=== PATIENT | female | born 2000 | race Caucasian/White ===

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

== ENCOUNTER 2020-03-02 15:24 | Emergency (ER) | payer BC, SELFPAY ==
[2020-03-02] VITALS (19 sets, daily range): BP systolic 105–126; BP diastolic 59–73; PULSE 43–75; RESP 12–26; TEMP 36.4; O2SAT 98–100; BMI 25.8
--- NOTE | 2020-03-02 15:53 | DI.RAD.S_ITS ---
PROCEDURE: XR CHEST 1V INDICATIONS: chest pain TECHNIQUE: One view of the chest was acquired. COMPARISON: None. FINDINGS: Surgical changes and devices: None. Lungs and pleura: Mild left basilar atelectasis. No pleural effusions or pneumothorax. Mediastinum: Mediastinal contours appear normal. Heart size is normal. Bones and chest wall: No suspicious bony lesions. Overlying soft tissues appear unremarkable. IMPRESSION: No acute cardiopulmonary disease. Mild left basilar atelectasis. Dictated by: Breanne Wasserman M.D. on 03/02/2020 at 16:09 Approved by: Breanne Wasserman M.D. on 03/02/2020 at 16:15
[2020-03-02 16:21] LABS: Add Manual Diff / Slide Review NO; Basophils Absolute Auto 100 /uL (0-100); Basophils Percent Auto 0.6 % (0-2); Eosinophils Absolute Auto 200 /uL (0-450); Eosinophils Percent Auto 1.8 % (2-4); Hemoglobin 12.6 g/dL (12.0-16.0); Lymphocytes Absolute Auto 2900 /uL (1100-4500); Lymphocytes Percent Auto 34.1 % (25-40); Mean Corpuscular HGB Conc 34.9 % (30-36); Mean Corpuscular Hemoglobin 30.7 PG (26-34); Monocytes Absolute Auto 700 /uL (0-900); Monocytes Percent Auto 8.5 % (3-14); Neutrophils Absolute Auto 4600 /uL (1500-7000); Platelet Count 355 X10^3/uL (150-400); White Blood Cell Count 8.4 X10^3/uL (4.5-11.0)
[2020-03-02 16:28] LABS: INR 1.1 (0.9-1.3); Prothrombin Time 12.5 SECONDS (10.1-12.7)
[2020-03-02 16:31] LABS: PTT Partial Thromboplastin Tim 33 SECONDS (26.4-36.2)
[2020-03-02 16:32] LABS: Albumin 4.6 g/dL (3.5-5.0); Albumin Globulin Ratio 1.6 (1.0-2.8); Alkaline Phosphatase 68 U/L (38-126); Aspartate Aminotransferase 30 IU/L (14-36); BUN Creatinine Ratio 13.8 (6-22); Bilirubin Total 0.4 mg/dL (0.2-1.3); Blood Urea Nitrogen 9 mg/dL (7-17); Carbon Dioxide 25 mmol/L (22-32); Chloride 107 mmol/L (98-107); Creatine Kinase 156 U/L (30-135); Estimated Glomerular Filt Rate > 60.0 mL/min (>60); Globulin 2.9 g/dL (1.7-4.1); Glucose 97 mg/dL (70-100); HEMOLYSIS < 15 (0-50); Lipase 51 U/L (23-300); Potassium 4.6 mmol/L (3.4-5.1); Sodium 140 mmol/L (137-145); Total Protein 7.5 g/dL (6.3-8.2)
[2020-03-02 16:44] LABS: Troponin I < 0.012 ng/mL (0.01-0.034)
[2020-03-02 16:48] LABS: CKMB % Relative Index 0.4 % (1.5-5.0); Creatine Kinase MB 0.56 ng/mL (<2.37)
[2020-03-02 17:11] LABS: D Dimer 728 ng/mL (<230)
--- NOTE | 2020-03-02 18:17 | DI.CT.S_ITS ---
PROCEDURE: CT ANGIO CHEST PE PROTOCOL INDICATIONS: pain on breathing, +d dimer TECHNIQUE: After the administration of intravenous contrast, 2 mm thick sections acquired from the pulmonary apices to the posterior costophrenic angles. 3-dimensional maximum intensity projection (MIP) coronal and sagittal reformats were then acquired through the thorax. For radiation dose reduction, the following was used: automated exposure control, adjustment of mA and/or kV according to patient size. COMPARISON: None. FINDINGS: Image quality: Study is degraded secondary to suboptimal timing of contrast bolus. Pulmonary arteries: Pulmonary arteries are normal in size, and demonstrate no intraluminal filling defects to suggest central pulmonary embolism. Lungs and pleura: There is a small right and trace left pleural effusion. Associated compressive atelectasis. Lungs are otherwise clear. No pneumothorax. Central and peripheral airways are patent. Mediastinum: Heart size is normal, without pericardial effusion. No mediastinal or hilar adenopathy. Thoracic aorta is normal in caliber and enhancement. Esophagus is normal in caliber, without hiatal hernia. Bones and chest wall: No suspicious bony lesions. Ribs and thoracic spine appear intact throughout. Thyroid gland is unremarkable. No axillary or supraclavicular adenopathy. Abdomen: Incompletely imaged gallbladder with suggestion of either presence of pericholecystic fluid versus distended gallbladder and a large gallstone. Remainder of the visualized upper abdominal solid organs appear normal in the early arterial phase of enhancement. IMPRESSION: 1. Within the limits of this study, no acute pulmonary emboli identified. 2. Trace left and small right bilateral pleural effusions. 3. Incompletely imaged gallbladder with suggestion of either pericholecystic fluid surrounding the gallbladder versus a distended gallbladder containing a large stone. Consider further evaluation with sonogram if there is right upper quadrant pain. Dictated by: Alfie Waller M.D. on 03/02/2020 at 20:21 Approved by: Alfie Waller M.D. on 03/02/2020 at 20:28
[2020-03-02] MEDS: KETOROLAC 60 MG/2 ML VIAL 30 MG IV (19:42)
--- NOTE | 2020-03-02 20:17 | ED_ITS ---
HPI - Abdominal Pain <PARIS Perez - Last Filed: 03/02/20 23:03> General Chief Complaint: Abdominal Pain Stated Complaint: ABD PAIN HAS ISSUES WHEN TAKING A BREATH Time Seen by Provider: 03/02/20 16:49 Source: patient and family Mode of arrival: Ambulatory Limitations: no limitations History of Present Illness HPI narrative: The patient is a 19-year-old female nonsmoker who denies pertinent medical history presents with a chief complaint of right-sided abdominal and chest pain, especially when taking a deep breath. She states it is positional, worse with pressure and worse with taking a deep breath. She states that the pain bleeds shortness of breath. She denies any fevers nausea vomiting or diarrhea. She denies any worsening after she eats. She denies any or moves or recent episodes of immobility. She denies any abdominal surgeries. She does have history of left ankle fracture a few months ago. Mother notes that she recently climbed [employer] on Sunday and Sunday. She states that the pain radiates from right upper quadrant of the front of her chest. Worse with some movements. Related Data Home Medications Medication Instructions Recorded Confirmed No Known Home Medications 08/07/18 09/24/18 Allergies Allergy/AdvReac Type Severity Reaction Status Date / Time No Known Drug Allergies Allergy Verified 03/02/20 15:35 Review of Systems <PARIS Perez - Last Filed: 03/02/20 23:03> Review of Systems Narrative: GENERAL: Denies chills, fatigue, malaise, fever, sweats. HEENT: Denies sinus pain, ear pain, sore throat, difficulty swallowing, dizziness. RESPIRATORY: See HPI CARDIOVASCULAR: See HPI GASTROINTESTINAL: See HPI : Denies dysuria, frequency, incontinence, hematuria, urinary retention. MUSCULOSKELETAL: denies weakness, joint pain, or bony pain SKIN: Denies rash, skin lesions, or other NEUROLOGIC: Denies weakness, headache, numbness, change in speech, confusion, seizures, incoordination. PSYCHIATRIC: No concerning psychosocial issues. 12 point review of systems is negative except for those stated above Patient History <PARIS Perez - Last Filed: 03/02/20 23:03> Social History Smoking Status: Never smoker Smoking Status: Never smoker Substance Use Type: does not use Exam <SURESH Perez - Last Filed: 03/02/20 23:03> Narrative Exam Narrative: GENERAL: This is a well-nourished, well-developed patient, in no acute distress HEAD: Atraumatic. Normocephalic. No temporal or scalp tenderness. EYES: Pupils equal round and reactive. Extraocular motions intact. No scleral icterus. No injection or drainage. ENT: Nose without bleeding, purulent drainage or septal hematoma. Airway patent. NECK: Trachea midline. No JVD or lymphadenopathy. Supple, nontender, no meningeal signs. CARDIOVASCULAR: Regular rate and rhythm RESPIRATORY: Clear to auscultation. Breath sounds equal bilaterally. No wheezes, rales, or rhonchi. No cough. No increased respiratory effort. No accessory muscle use. GASTROINTESTINAL: Abdomen soft, active bowel sounds all 4 quadrants, nondistended. No hepato-splenomegaly, or palpable masses. No guarding. pain to palpation right upper quadrant, which is positional. EXTREMITIES: No clubbing, cyanosis, or edema. No joint tenderness, effusion, or edema noted. BACK: Nontender without deformity or crepitance. No flank tenderness. NEURO: AOx3. SKIN: No rash or erythema on visible skin Initial Vital Signs Initial Vital Signs: Vital Signs Temperature 97.6 F 03/02/20 15:29 Pulse Rate 62 03/02/20 15:29 Respiratory Rate 12 03/02/20 15:29 Blood Pressure 126/73 03/02/20 15:29 Pulse Oximetry 100 03/02/20 15:29 <Julio Martínez DO - Last Filed: 03/02/20 23:16> Initial Vital Signs Initial Vital Signs: Vital Signs Temperature 97.6 F 03/02/20 15:29 Pulse Rate 62 03/02/20 15:29 Respiratory Rate 12 03/02/20 15:29 Blood Pressure 126/73 03/02/20 15:29 Pulse Oximetry 100 03/02/20 15:29 Scores <SURESH Perez - Last Filed: 03/02/20 23:03> GCS Giovanna coma scale eye opening: Spontaneous [place] coma scale verbal response: Orientated [place] coma scale motor response: Obey commands Giovanna coma scale total score: 15 Course <SURESH Perez - Last Filed: 03/02/20 23:03> Orders Ordered: ED Orders 03/02/20 15:53 XR chest 1V Stat EKG-12 Lead Stat 03/02/20 15:57 Complete Blood Count AUTO DIFF Stat Comprehensive Metabolic Panel Stat D Dimer Stat Lipase Stat Partial Thromboplastin Time Stat Prothrombin Time INR Stat Troponin & CK Cardiac Panel Stat 03/02/20 18:17 CT angio chest PE protocol Stat 03/02/20 20:34 US abdomen limited Stat Discontinued Medications Cyclobenzaprine HCl (Flexeril) 10 mg PO NOW ONE Stop: 03/02/20 20:31 Last Admin: 03/02/20 20:51 Dose: Not Given Documented by: ANI Ketorolac Tromethamine (Toradol) 30 mg IV NOW ONE Stop: 03/02/20 18:19 Last Admin: 03/02/20 19:42 Dose: 30 mg Documented by: ANI Vital Signs Vital signs: Vital Signs - 8 hr 03/02/20 15:29 03/02/20 15:57 03/02/20 16:00 Temperature 97.6 F Pulse Rate 62 75 73 Respiratory Rate 12 20 Blood Pressure 126/73 119/67 119/70 Pulse Oximetry 100 100 100 03/02/20 16:30 03/02/20 17:00 03/02/20 17:30 Temperature Pulse Rate 45 L 52 L Respiratory Rate 19 25 H Blood Pressure 125/70 118/70 Pulse Oximetry 100 100 03/02/20 17:31 03/02/20 18:19 03/02/20 18:20 Temperature Pulse Rate 73 48 L 48 L Respiratory Rate 26 H 19 Blood Pressure 126/72 115/64 Pulse Oximetry 99 99 100 03/02/20 18:30 03/02/20 19:06 03/02/20 19:07 Temperature Pulse Rate 47 L 48 L 54 L Respiratory Rate 17 17 Blood Pressure 116/69 Pulse Oximetry 100 98 99 03/02/20 19:30 03/02/20 20:00 03/02/20 20:30 Temperature Pulse Rate 45 L 47 L 52 L Respiratory Rate 17 13 23 Blood Pressure 115/64 117/59 L 123/68 Pulse Oximetry 99 98 99 03/02/20 21:00 03/02/20 21:30 03/02/20 22:00 Temperature Pulse Rate 47 L 61 43 L Respiratory Rate 24 16 16 Blood Pressure 119/67 123/66 105/63 Pulse Oximetry 99 100 98 03/02/20 22:30 Temperature Pulse Rate 47 L Respiratory Rate 19 Blood Pressure 111/60 Pulse Oximetry 99 <Julio Martínez DO - Last Filed: 03/02/20 23:16> Orders Ordered: ED Orders 03/02/20 15:53 XR chest 1V Stat EKG-12 Lead Stat 03/02/20 15:57 Complete Blood Count AUTO DIFF Stat Comprehensive Metabolic Panel Stat D Dimer Stat Lipase Stat Partial Thromboplastin Time Stat Prothrombin Time INR Stat Troponin & CK Cardiac Panel Stat 03/02/20 18:17 CT angio chest PE protocol Stat 03/02/20 20:34 US abdomen limited Stat Discontinued Medications Cyclobenzaprine HCl (Flexeril) 10 mg PO NOW ONE Stop: 03/02/20 20:31 Last Admin: 03/02/20 20:51 Dose: Not Given Documented by: ANI Ketorolac Tromethamine (Toradol) 30 mg IV NOW ONE Stop: 03/02/20 18:19 Last Admin: 03/02/20 19:42 Dose: 30 mg Documented by: ANI Vital Signs Vital signs: Vital Signs - 8 hr 03/02/20 15:29 03/02/20 15:57 03/02/20 16:00 Temperature 97.6 F Pulse Rate 62 75 73 Respiratory Rate 12 20 Blood Pressure 126/73 119/67 119/70 Pulse Oximetry 100 100 100 03/02/20 16:30 03/02/20 17:00 03/02/20 17:30 Temperature Pulse Rate 45 L 52 L Respiratory Rate 19 25 H Blood Pressure 125/70 118/70 Pulse Oximetry 100 100 03/02/20 17:31 03/02/20 18:19 03/02/20 18:20 Temperature Pulse Rate 73 48 L 48 L Respiratory Rate 26 H 19 Blood Pressure 126/72 115/64 Pulse Oximetry 99 99 100 03/02/20 18:30 03/02/20 19:06 03/02/20 19:07 Temperature Pulse Rate 47 L 48 L 54 L Respiratory Rate 17 17 Blood Pressure 116/69 Pulse Oximetry 100 98 99 03/02/20 19:30 03/02/20 20:00 03/02/20 20:30 Temperature Pulse Rate 45 L 47 L 52 L Respiratory Rate 17 13 23 Blood Pressure 115/64 117/59 L 123/68 Pulse Oximetry 99 98 99 03/02/20 21:00 03/02/20 21:30 03/02/20 22:00 Temperature Pulse Rate 47 L 61 43 L Respiratory Rate 24 16 16 Blood Pressure 119/67 123/66 105/63 Pulse Oximetry 99 100 98 03/02/20 22:30 Temperature Pulse Rate 47 L Respiratory Rate 19 Blood Pressure 111/60 Pulse Oximetry 99 MDM - Abdominal Pain <EVA PerezP- - Last Filed: 03/02/20 23:03> Lab Data Attestation: I reviewed the patient's lab results. Result diagrams: 03/02/20 15:57 03/02/20 15:57 Labs: Lab Results 03/02/20 03/02/20 03/02/20 Range/Units 15:57 15:57 15:57 WBC 8.4 (4.5-11.0) X10^3/uL RBC 4.10 (4.0-5.2) X10^6/uL Hgb 12.6 (12.0-16.0) g/dL Hct 36.0 (36-46) % MCV 88.0 (80-100) fL MCH 30.7 (26-34) PG MCHC 34.9 (30-36) % RDW 13.0 (11.6-14.8) % Plt Count 355 (150-400) X10^3/uL Neut % (Auto) 55.0 (50-75) % Lymph % (Auto) 34.1 (25-40) % [place] % (Auto) 8.5 (3-14) % Eos % (Auto) 1.8 L (2-4) % Baso % (Auto) 0.6 (0-2) % Neut # (Auto) 4600 (9797-1075) /uL Lymph # (Auto) 2900 (6727-0868) /uL [place] # (Auto) 700 (0-900) /uL Eos # (Auto) 200 (0-450) /uL Baso # (Auto) 100 (0-100) /uL PT 12.5 (10.1-12.7) SECONDS INR 1.1 (0.9-1.3) APTT 33 (26.4-36.2) SECONDS D-Dimer (<230) ng/mL Sodium 140 (137-145) mmol/L Potassium 4.6 (3.4-5.1) mmol/L Chloride 107 (98-107) mmol/L Carbon Dioxide 25 (22-32) mmol/L BUN 9 (7-17) mg/dL Creatinine 0.65 (0.52-1.04) mg/dL Estimated GFR > 60.0 (>60) mL/min BUN/Creatinine Ratio 13.8 (6-22) Glucose 97 (70-100) mg/dL Calcium 10.0 (8.4-10.2) mg/dL Total Bilirubin 0.4 (0.2-1.3) mg/dL AST 30 (14-36) IU/L Alkaline Phosphatase 68 (38-126) U/L Total Creatine Kinase 156 H (30-135) U/L CK-MB (CK-2) 0.56 (<2.37) ng/mL CK-MB (CK-2) Rel Index 0.4 L (1.5-5.0) % Troponin I < 0.012 (0.01-0.034) ng/mL Total Protein 7.5 (6.3-8.2) g/dL Albumin 4.6 (3.5-5.0) g/dL Globulin 2.9 (1.7-4.1) g/dL Albumin/Globulin Ratio 1.6 (1.0-2.8) Lipase 51 (23-300) U/L 07/14/20 Range/Units 15:57 WBC (4.5-11.0) X10^3/uL RBC (4.0-5.2) X10^6/uL Hgb (12.0-16.0) g/dL Hct (36-46) % MCV (80-100) fL MCH (26-34) PG MCHC (30-36) % RDW (11.6-14.8) % Plt Count (150-400) X10^3/uL Neut % (Auto) (50-75) % Lymph % (Auto) (25-40) % [place] % (Auto) (3-14) % Eos % (Auto) (2-4) % Baso % (Auto) (0-2) % Neut # (Auto) (6825-3483) /uL Lymph # (Auto) (4605-3901) /uL [place] # (Auto) (0-900) /uL Eos # (Auto) (0-450) /uL Baso # (Auto) (0-100) /uL PT (10.1-12.7) SECONDS INR (0.9-1.3) APTT (26.4-36.2) SECONDS D-Dimer 728 H (<230) ng/mL Sodium (137-145) mmol/L Potassium (3.4-5.1) mmol/L Chloride (98-107) mmol/L Carbon Dioxide (22-32) mmol/L BUN (7-17) mg/dL Creatinine (0.52-1.04) mg/dL Estimated GFR (>60) mL/min BUN/Creatinine Ratio (6-22) Glucose (70-100) mg/dL Calcium (8.4-10.2) mg/dL Total Bilirubin (0.2-1.3) mg/dL AST (14-36) IU/L Alkaline Phosphatase (38-126) U/L Total Creatine Kinase (30-135) U/L CK-MB (CK-2) (<2.37) ng/mL CK-MB (CK-2) Rel Index (1.5-5.0) % Troponin I (0.01-0.034) ng/mL Total Protein (6.3-8.2) g/dL Albumin (3.5-5.0) g/dL Globulin (1.7-4.1) g/dL Albumin/Globulin Ratio (1.0-2.8) Lipase (23-300) U/L Point of care testing: Point of Care Testing Test Results Negative Urine Dip Bedside Urine Glucose Negative Bedside Urine Bilirubin - Negative Bedside Urine Ketone - Negative Urine Specific [place] 1.015 Bedside Urine Occult Blood +/- Bedside Urine pH 6.0 Bedside Urine Protein - Negative Bedside Urine Urobilinogen - Negative Bedside Urine Nitrite - Negative Bedside Urine Leukocytes - Negative Esterase Imaging Data CT scan - chest: Radiologist's Impression: [address] [place] [id number] Scan Report Signed Patient: Andie Krishna LMR#: [id number] : 2000Acct:[id number] Age/Sex: 19 / FDate of Service: 03/02/20 Loc: ED Accession Number: [id number] Procedure: CT angio chest PE protocol Ordering Provider: Andie Rincon [facility]- PROCEDURE: CT ANGIO CHEST PE PROTOCOL INDICATIONS: pain on breathing, +d dimer TECHNIQUE: After the administration of intravenous contrast, 2 mm thick sections acquired from the pulmonary apices to the posterior costophrenic angles. 3-dimensional maximum intensity projection (MIP) coronal and sagittal reformats were then acquired through the thorax. For radiation dose reduction, the following was used: automated exposure control, adjustment of mA and/or kV according to patient size. COMPARISON: None. FINDINGS: Image quality: Study is degraded secondary to suboptimal timing of contrast bolus. Pulmonary arteries: Pulmonary arteries are normal in size, and demonstrate no intraluminal filling defects to suggest central pulmonary embolism. Lungs and pleura: There is a small right and trace left pleural effusion. Associated compressive atelectasis. Lungs are otherwise clear. No pneumothorax. Central and peripheral airways are patent. Mediastinum: Heart size is normal, without pericardial effusion. No mediastinal or hilar adenopathy. Thoracic aorta is normal in caliber and enhancement. Esophagus is normal in caliber, without hiatal hernia. Bones and chest wall: No suspicious bony lesions. Ribs and thoracic spine appear intact throughout. Thyroid gland is unremarkable. No axillary or supraclavicular adenopathy. Abdomen: Incompletely imaged gallbladder with suggestion of either presence of pericholecystic fluid versus distended gallbladder and a large gallstone. Remainder of the visualized upper abdominal solid organs appear normal in the early arterial phase of enhancement. IMPRESSION: 1. Within the limits of this study, no acute pulmonary emboli identified. 2. Trace left and small right bilateral pleural effusions. 3. Incompletely imaged gallbladder with suggestion of either pericholecystic fluid surrounding the gallbladder versus a distended gallbladder containing a large stone. Consider further evaluation with sonogram if there is right upper quadrant pain. Dictated by: Alfie Waller M.D. on 03/02/2020 at 20:21 Approved by: Alfie Waller M.D. on 03/02/2020 at 20:28 Chest x-ray: Radiologist's Impression: [facility] [address] [place] [id number] XRay Report Signed Patient: Andie Krishna LMR#: [id number] : 2000Acct:[id number] Age/Sex: 19 / FDate of Service: 03/02/20 Loc: ED Accession Number: [id number] Procedure: XR chest 1V Ordering Provider: Jamey Gordillo MD PROCEDURE: XR CHEST 1V INDICATIONS: chest pain TECHNIQUE: One view of the chest was acquired. COMPARISON: None. FINDINGS: Surgical changes and devices: None. Lungs and pleura: Mild left basilar atelectasis. No pleural effusions or pneumothorax. Mediastinum: Mediastinal contours appear normal. Heart size is normal. Bones and chest wall: No suspicious bony lesions. Overlying soft tissues appear unremarkable. IMPRESSION: No acute cardiopulmonary disease. Mild left basilar atelectasis. Dictated by: Breanne Wasserman M.D. on 03/02/2020 at 16:09 Approved by: Breanne Wasserman M.D. on 03/02/2020 at 16:15 US - abdomen: Radiologist's Impression: [address] [place] [address] Ultrasound Report Signed Patient: Andie Krishna LMR#: [id number] : 2000Acct:[id number] Age/Sex: 19 / FDate of Service: 03/02/20 Loc: ED Accession Number: [id number] Procedure: US abdomen limited Ordering Provider: Andie Rincon [facility] PROCEDURE: US ABDOMEN LIMITED INDICATIONS: RUQ PAIN TECHNIQUE: Real-time scanning was performed of the abdominal and retroperitoneal organs, with image documentation. COMPARISON: None. FINDINGS: Liver: Liver is normal in size and homogeneous in echotexture. Gallbladder: The gallbladder is visualized and demonstrates wall thickening measuring up to 6 mm in thickness as well as pericholecystic fluid. There is a negative sonographic Santana's. No visualized gallstones. Biliary ducts: Intrahepatic bile ducts are non-dilated. Extrahepatic bile duct caliber measures 3 mm. Normal is 6-7 mm or less in diameter, or 10 mm or less post-cholecystectomy. Pancreas: Visualized portions of the pancreas are sonographically normal. Miscellaneous: No free abdominal fluid. IMPRESSION: 1. Gallbladder wall thickening with pericholecystic fluid. No cholelithiasis . No sonographic Santana's sign elicited by the personal care attendant. Findings may represent sequela of chronic cholecystitis or acalculous cholecystitis. 2. Consider further evaluation with outpatient nuclear medicine HIDA scan. Dictated by: Alfie Waller M.D. on 03/02/2020 at 22:30 Approved by: Alfie Waller M.D. on 03/02/2020 at 22:33 MDM Narrative Medical decision making narrative: The patient is a 19-year-old female who presents with a chief complaint of difficulty taking a deep breath, pain radiating from her right upper quadrant up the center of her chest as well as shortness of breath. She recently [place], started having this pain a [place] days [place] Patient's overall lab work came back with no acute findings, no leukocytosis, though she was noted to have an elevated D-dimer, so CT PE was obtained to help rule out pulmonary embolism. This came back negative. However there is concern of possible gallbladder etiology, so ultrasound was subsequently obtained. The patient repeatedly decli linus pain medications or medication through her IV throughout her stay in the emergency department. Ultrasound shows gallbladder wall thickening with pericholecystic fluid. Spoke with Dr. Dukes given ultrasound findings, patient has no leukocytosis, is tolerating p.o. food and fluids etcetera. She declines pain medication. She will follow-up with Dr. Dukes as an outpatient for a HIDA scan. I discussed at length strict return precautions including inability keep down food or fluids, abdominal pain with fever etcetera. Patient has no questions or concerns upon discharge and states understanding of return precautions as well as follow-up care. <Julio Martínez DO - Last Filed: 03/02/20 23:16> Lab Data Labs: Lab Results 03/02/20 03/02/20 03/02/20 Range/Units 15:57 15:57 15:57 WBC 8.4 (4.5-11.0) X10^3/uL RBC 4.10 (4.0-5.2) X10^6/uL Hgb 12.6 (12.0-16.0) g/dL Hct 36.0 (36-46) % MCV 88.0 (80-100) fL MCH 30.7 (26-34) PG MCHC 34.9 (30-36) % RDW 13.0 (11.6-14.8) % Plt Count 355 (150-400) X10^3/uL Neut % (Auto) 55.0 (50-75) % Lymph % (Auto) 34.1 (25-40) % [place] % (Auto) 8.5 (3-14) % Eos % (Auto) 1.8 L (2-4) % Baso % (Auto) 0.6 (0-2) % Neut # (Auto) 4600 (2195-2810) /uL Lymph # (Auto) 2900 (0833-4675) /uL [place] # (Auto) 700 (0-900) /uL Eos # (Auto) 200 (0-450) /uL Baso # (Auto) 100 (0-100) /uL PT 12.5 (10.1-12.7) SECONDS INR 1.1 (0.9-1.3) APTT 33 (26.4-36.2) SECONDS D-Dimer (<230) ng/mL Sodium 140 (137-145) mmol/L Potassium 4.6 (3.4-5.1) mmol/L Chloride 107 (98-107) mmol/L Carbon Dioxide 25 (22-32) mmol/L BUN 9 (7-17) mg/dL Creatinine 0.65 (0.52-1.04) mg/dL Estimated GFR > 60.0 (>60) mL/min BUN/Creatinine Ratio 13.8 (6-22) Glucose 97 (70-100) mg/dL Calcium 10.0 (8.4-10.2) mg/dL Total Bilirubin 0.4 (0.2-1.3) mg/dL AST 30 (14-36) IU/L Alkaline Phosphatase 68 (38-126) U/L Total Creatine Kinase 156 H (30-135) U/L CK-MB (CK-2) 0.56 (<2.37) ng/mL CK-MB (CK-2) Rel Index 0.4 L (1.5-5.0) % Troponin I < 0.012 (0.01-0.034) ng/mL Total Protein 7.5 (6.3-8.2) g/dL Albumin 4.6 (3.5-5.0) g/dL Globulin 2.9 (1.7-4.1) g/dL Albumin/Globulin Ratio 1.6 (1.0-2.8) Lipase 51 (23-300) U/L 07/14/20 Range/Units 15:57 WBC (4.5-11.0) X10^3/uL RBC (4.0-5.2) X10^6/uL Hgb (12.0-16.0) g/dL Hct (36-46) % MCV (80-100) fL MCH (26-34) PG MCHC (30-36) % RDW (11.6-14.8) % Plt Count (150-400) X10^3/uL Neut % (Auto) (50-75) % Lymph % (Auto) (25-40) % [place] % (Auto) (3-14) % Eos % (Auto) (2-4) % Baso % (Auto) (0-2) % Neut # (Auto) (6231-4576) /uL Lymph # (Auto) (7817-7150) /uL [place] # (Auto) (0-900) /uL Eos # (Auto) (0-450) /uL Baso # (Auto) (0-100) /uL PT (10.1-12.7) SECONDS INR (0.9-1.3) APTT (26.4-36.2) SECONDS D-Dimer 728 H (<230) ng/mL Sodium (137-145) mmol/L Potassium (3.4-5.1) mmol/L Chloride (98-107) mmol/L Carbon Dioxide (22-32) mmol/L BUN (7-17) mg/dL Creatinine (0.52-1.04) mg/dL Estimated GFR (>60) mL/min BUN/Creatinine Ratio (6-22) Glucose (70-100) mg/dL Calcium (8.4-10.2) mg/dL Total Bilirubin (0.2-1.3) mg/dL AST (14-36) IU/L Alkaline Phosphatase (38-126) U/L Total Creatine Kinase (30-135) U/L CK-MB (CK-2) (<2.37) ng/mL CK-MB (CK-2) Rel Index (1.5-5.0) % Troponin I (0.01-0.034) ng/mL Total Protein (6.3-8.2) g/dL Albumin (3.5-5.0) g/dL Globulin (1.7-4.1) g/dL Albumin/Globulin Ratio (1.0-2.8) Lipase (23-300) U/L Point of care testing: Point of Care Testing Test Results Negative Urine Dip Bedside Urine Glucose Negative Bedside Urine Bilirubin - Negative Bedside Urine Ketone - Negative Urine Specific [place] 1.015 Bedside Urine Occult Blood +/- Bedside Urine pH 6.0 Bedside Urine Protein - Negative Bedside Urine Urobilinogen - Negative Bedside Urine Nitrite - Negative Bedside Urine Leukocytes - Negative Esterase Discharge Plan Departure Patient Disposition: Home Clinical Impression: Thickening of wall of gallbladder with pericholecystic fluid Discharge Date/Time: 03/02/20 23:04 Instructions: DI for General Gallbladder Conditions, DI for HIDA Scan, DI for Biliary Colic Activity Restrictions/Additional Instructions: Thank you for trusting us with your care today. As I discussed, your ultrasound shows gallbladder wall thickening with fluid As discussed, please follow-up with Dr. Dukes. She is our surgeon on-call [facility], and I called and spoke with her this evening. She would like you to call her office tomorrow so that you can get into clinic later this week. I gave you discharge information regarding gallbladder issues and the HIDA scan that is indicated. You have declined pain and nausea medication from the emergency department Please use [id number] medications as needed and able Please come back to the emergency department for any acute concerns such as inability keep down food or fluids, abdominal pain with fever etcetera In the meantime, please eat small low-fat meals. Eating high fat can exacerbate gallbladder issues. Prescriptions: No Action No Known Home Medications RF: 0 Referrals: Irlanda Mena MD [Primary Care Provider] - Noemi Dukes MD [Physician] - Stand Alone Forms: School Release Note <Julio Martínez DO - Last Filed: 03/02/20 23:16> Cosign ED Attending Cosignature Attestation: I was immediately available in the department for consultation. This documentation has been reviewed and I agree with assessment and plan. Supervised by Julio Martínez DO
--- NOTE | 2020-03-02 20:34 | DI.US.S_ITS ---
PROCEDURE: US ABDOMEN LIMITED INDICATIONS: RUQ PAIN TECHNIQUE: Real-time scanning was performed of the abdominal and retroperitoneal organs, with image documentation. COMPARISON: None. FINDINGS: Liver: Liver is normal in size and homogeneous in echotexture. Gallbladder: The gallbladder is visualized and demonstrates wall thickening measuring up to 6 mm in thickness as well as pericholecystic fluid. There is a negative sonographic Santana's. No visualized gallstones. Biliary ducts: Intrahepatic bile ducts are non-dilated. Extrahepatic bile duct caliber measures 3 mm. Normal is 6-7 mm or less in diameter, or 10 mm or less post-cholecystectomy. Pancreas: Visualized portions of the pancreas are sonographically normal. Miscellaneous: No free abdominal fluid. IMPRESSION: 1. Gallbladder wall thickening with pericholecystic fluid. No cholelithiasis . No sonographic Santana's sign elicited by the director of social media marketing. Findings may represent sequela of chronic cholecystitis or acalculous cholecystitis. 2. Consider further evaluation with outpatient nuclear medicine HIDA scan. Dictated by: Alfie Waller M.D. on 03/02/2020 at 22:30 Approved by: Alfie Waller M.D. on 03/02/2020 at 22:33
[2020-03-03 14:36] LABS: Alanine Aminotransferase 23 IU/L (<35)
== END 2020-03-02 23:04 | disposition home or self-care (01) ==
PROVIDERS: Emergency Medicine; Emergency Provider Nurse Practitioner Family; Family Provider Pediatrics; PCP Pediatrics
DX: K82.8 Other specified diseases of gallbladder (principal); R07.9 Chest pain, unspecified; R06.00 Dyspnea, unspecified; R79.89 Other specified abnormal findings of blood chemistry
CPT/HCPCS: 36415; 71045; 71275; 76705; 80053; 81003; 81025; 82550; 82553; 83690; 84484; 85025; 85379; 85610; 85730; 93005; 93010; 96374; 99284; J1885; Q9967

== ENCOUNTER → 2020-03-11 08:49 | Outpatient (CLI) | payer BC, SELFPAY ==
--- NOTE | 2020-03-11 | DI.NM.S_ITS ---
PROCEDURE: NM HIDA WITH CCK PHARMACEUTICAL: 5.2 mCi Tc-99m mebrofenin IV; 1.6 mcg CCK IV. INDICATIONS: Other specified diseases of gallbladder TECHNIQUE: Following intravenous administration of Tc-99m mebrofenin, sequential anterior abdominal images were obtained. To evaluate the contractile response of the gallbladder in response to Cholecystokinin (CCK), sincalide (0.02 ?g/kg) was administered by slow intravenous infusion approximately 60 minutes after the administration of the radiopharmaceutical. Sequential imaging was continued for 30 minutes after the start of CCK infusion. Gallbladder ejection fraction was calculated. COMPARISON: None. FINDINGS: Biliary scan: There is normal tracer uptake and excretion by the liver. There is normal visualization of the intrahepatic ducts, common bile duct, and gallbladder. There is normal tracer transit into the duodenum. CCK stimulation: There is normal contractile response of the gallbladder to CCK infusion. The calculated gallbladder ejection fraction is 51%; normal values are above 35%. It has been shown that any patient abdominal pain after CCK administration is related to the rate of CCK injection, rather than to any underlying gallbladder disease (Clinical Nuclear Medicine 2012; 37: 63-70. Journal of Nuclear Medicine 2014; 55: 1-9). IMPRESSION: Normal study. No findings of cholecystitis. Normal GBEF. Dictated by: Kenroy Bruno M.D. on 03/11/2020 at 11:48 Approved by: Kenroy Bruno M.D. on 03/11/2020 at 11:53
== END ==
PROVIDERS: Family Provider Pediatrics; Referring Provider Surgery; Visit Provider Surgery
DX: K82.8 Other specified diseases of gallbladder (principal); R10.11 Right upper quadrant pain
CPT/HCPCS: 78227; A9537; J2805